=== PATIENT | female | born 1955 | race Caucasian/White ===

== ENCOUNTER 2020-09-25 22:00 | Inpatient (IN) ==
[2020-09-25] MEDS ORDERED: D5% in Water 1,000 ML IVC PRN (23:21)
[2020-09-25] MEDS ORDERED: *HR* Dextrose 50 % in Water (Vial) 50 ML VIAL IVP PRN (23:21)
[2020-09-25] MEDS ORDERED: Dextrose Gel 15 GM/37.5 ML TUBE PO PRN ×2 (23:21)
[2020-09-25] MEDS ORDERED: Cholecalciferol (D-3) 1,000 UNIT (25MCG) TABLET PO SCH (23:45)
[2020-09-26] MEDS: Ibuprofen 800 MG TABLET PO PRN ×2 (00:05→09:29)
[2020-09-26] MEDS: Insulin LISPRO 300 UNITS/3 ML VIAL SUBQ SCH ×5 (00:06→20:53)
[2020-09-26 04:28] LABS: Basophils % 0.4 %; Eosinophils # 0.1 K/mcL (0.0-0.6); Eosinophils % 1.2 %; Hemoglobin 12.4 g/dL (11.5-15.4); Immature Granulocytes % 0.3 % (0-4); Lymphocytes # 2.6 K/mcL (0.6-4.6); Lymphocytes % 33.5 %; Mean Corpuscular HGB Conc 32.6 g/dL (31.6-35.5); Mean Platelet Volume 9.5 fL (9.4-12.4); Monocytes % 12.3 %; Platelet Count 238 K/mcL (140-400); Red Cell Distribution Width 11.9 % (11.5-14.5); Segmented Neutrophils % 52.3 %; White Blood Count 7.7 K/mcL (4.3-11.1)
[2020-09-26 05:20] LABS: BUN/Creatinine Ratio 22 (6-26); Blood Urea Nitrogen 17 mg/dL (8-23); Calcium 9.5 mg/dL (8.6-10.3); Carbon Dioxide 26 mEq/L (23-29); Chloride 104 mEq/L (98-107); Glucose 156 mg/dL (70-105); Osmolality,Calculated 293 (280-300); Potassium 3.7 mEq/L (3.5-5.1); Sodium 139 mEq/L (136-145); eGFR For African Americans > 60 (> 60); eGFR For Non-African Americans > 60 (> 60)
[2020-09-26] MEDS: Aspirin Enteric Coated 81 MG Tablet PO SCH (09:28)
[2020-09-26] MEDS: Fenofibrate 54 MG TABLET PO SCH (09:28)
[2020-09-26] MEDS: lisinopriL 5 MG TABLET PO SCH (09:28)
[2020-09-26] MEDS: *HR* Metformin 500 MG TABLET PO SCH ×2 (09:28→17:46)
[2020-09-26] MEDS: Cholecalciferol (D-3) 1,000 UNIT (25MCG) TABLET PO SCH (09:31)
[2020-09-26] MEDS: Nicotine 14 MG PATCH.TD24 TD SCH (17:47)
[2020-09-27] MEDS: Ibuprofen 800 MG TABLET PO PRN (04:47)
[2020-09-27] MEDS: Fenofibrate 54 MG TABLET PO SCH (09:25)
[2020-09-27] MEDS: *HR* Metformin 500 MG TABLET PO SCH ×2 (09:25→16:39)
[2020-09-27] MEDS: Aspirin Enteric Coated 81 MG Tablet PO SCH (09:25)
[2020-09-27] MEDS: lisinopriL 5 MG TABLET PO SCH (09:25)
[2020-09-27] MEDS: Cholecalciferol (D-3) 1,000 UNIT (25MCG) TABLET PO SCH (09:26)
[2020-09-27] MEDS: Nicotine 14 MG PATCH.TD24 TD SCH (09:26)
[2020-09-27] MEDS: Insulin LISPRO 300 UNITS/3 ML VIAL SUBQ SCH ×4 (09:26→20:36)
[2020-09-28] MEDS: Aspirin Enteric Coated 81 MG Tablet PO SCH (07:50)
[2020-09-28] MEDS: Fenofibrate 54 MG TABLET PO SCH (07:50)
[2020-09-28] MEDS: lisinopriL 5 MG TABLET PO SCH (07:50)
[2020-09-28] MEDS: *HR* Metformin 500 MG TABLET PO SCH ×2 (07:51→17:00)
[2020-09-28] MEDS: Insulin LISPRO 300 UNITS/3 ML VIAL SUBQ SCH ×4 (07:51→21:29)
[2020-09-28] MEDS: Nicotine 14 MG PATCH.TD24 TD SCH (07:53)
[2020-09-28] MEDS: Cholecalciferol (D-3) 1,000 UNIT (25MCG) TABLET PO SCH (08:13)
[2020-09-28] MEDS: Melatonin 3 MG TABLET PO PRN (21:10)
[2020-09-29] MEDS: Fenofibrate 54 MG TABLET PO SCH (09:04)
[2020-09-29] MEDS: Aspirin Enteric Coated 81 MG Tablet PO SCH (09:05)
[2020-09-29] MEDS: Nicotine 14 MG PATCH.TD24 TD SCH (09:05)
[2020-09-29] MEDS: lisinopriL 5 MG TABLET PO SCH (09:05)
[2020-09-29] MEDS: *HR* Metformin 500 MG TABLET PO SCH ×2 (09:05→16:40)
[2020-09-29] MEDS: Cholecalciferol (D-3) 1,000 UNIT (25MCG) TABLET PO SCH (09:05)
[2020-09-29] MEDS: Insulin LISPRO 300 UNITS/3 ML VIAL SUBQ SCH ×4 (09:06→21:51)
[2020-09-29] MEDS: Melatonin 3 MG TABLET PO PRN (21:42)
[2020-09-29] MEDS: Ibuprofen 800 MG TABLET PO PRN (21:42)
[2020-09-30] MEDS: Insulin LISPRO 300 UNITS/3 ML VIAL SUBQ SCH ×4 (07:35→21:44)
[2020-09-30] MEDS: *HR* Metformin 500 MG TABLET PO SCH ×2 (08:26→17:18)
[2020-09-30] MEDS: Aspirin Enteric Coated 81 MG Tablet PO SCH (08:27)
[2020-09-30] MEDS: Nicotine 14 MG PATCH.TD24 TD SCH (08:27)
[2020-09-30] MEDS: Fenofibrate 54 MG TABLET PO SCH (08:27)
[2020-09-30] MEDS: lisinopriL 5 MG TABLET PO SCH (08:27)
[2020-09-30] MEDS: Cholecalciferol (D-3) 1,000 UNIT (25MCG) TABLET PO SCH (08:27)
[2020-09-30] MEDS: *HR* LORazepam 0.5 MG TABLET PO PRN (21:47)
[2020-09-30] MEDS: Melatonin 3 MG TABLET PO PRN (21:47)
[2020-10-01] MEDS: *HR* Metformin 500 MG TABLET PO SCH ×2 (09:07→16:20)
[2020-10-01] MEDS: *HR* LORazepam 0.5 MG TABLET PO PRN ×2 (09:08→21:07)
[2020-10-01] MEDS: Aspirin Enteric Coated 81 MG Tablet PO SCH (09:08)
[2020-10-01] MEDS: lisinopriL 5 MG TABLET PO SCH (09:08)
[2020-10-01] MEDS: Fenofibrate 54 MG TABLET PO SCH (09:08)
[2020-10-01] MEDS: Nicotine 14 MG PATCH.TD24 TD SCH (09:09)
[2020-10-01] MEDS: Insulin LISPRO 300 UNITS/3 ML VIAL SUBQ SCH ×4 (09:09→21:01)
[2020-10-01] MEDS: Cholecalciferol (D-3) 1,000 UNIT (25MCG) TABLET PO SCH (09:09)
[2020-10-01] MEDS: Ibuprofen 800 MG TABLET PO PRN (15:00)
[2020-10-01] MEDS: Melatonin 3 MG TABLET PO PRN (21:07)
[2020-10-02] MEDS: Fenofibrate 54 MG TABLET PO SCH (08:35)
[2020-10-02] MEDS: Aspirin Enteric Coated 81 MG Tablet PO SCH (08:35)
[2020-10-02] MEDS: *HR* Metformin 500 MG TABLET PO SCH ×2 (08:35→16:34)
[2020-10-02] MEDS: *HR* LORazepam 0.5 MG TABLET PO PRN ×2 (08:35→20:12)
[2020-10-02] MEDS: Cholecalciferol (D-3) 1,000 UNIT (25MCG) TABLET PO SCH (08:35)
[2020-10-02] MEDS: lisinopriL 5 MG TABLET PO SCH (08:35)
[2020-10-02] MEDS: Nicotine 14 MG PATCH.TD24 TD SCH (08:36)
[2020-10-02] MEDS: Insulin LISPRO 300 UNITS/3 ML VIAL SUBQ SCH ×4 (08:36→20:18)
[2020-10-02] MEDS: Melatonin 3 MG TABLET PO PRN (20:12)
[2020-10-03] MEDS: Insulin LISPRO 300 UNITS/3 ML VIAL SUBQ SCH ×2 (07:32→14:11)
[2020-10-03] MEDS: *HR* LORazepam 0.5 MG TABLET PO PRN (07:59)
[2020-10-03] MEDS: Cholecalciferol (D-3) 1,000 UNIT (25MCG) TABLET PO SCH (07:59)
[2020-10-03] MEDS: Fenofibrate 54 MG TABLET PO SCH (07:59)
[2020-10-03] MEDS: Aspirin Enteric Coated 81 MG Tablet PO SCH (07:59)
[2020-10-03] MEDS: *HR* Metformin 500 MG TABLET PO SCH (08:00)
[2020-10-03] MEDS: lisinopriL 5 MG TABLET PO SCH (08:00)
[2020-10-03] MEDS: Nicotine 14 MG PATCH.TD24 TD SCH (08:00)
[2020-10-03 13:05] LABS: Bilirubin,Urine Negative (Negative); Blood,Urine Negative (Negative); Clarity,Urine Clear (Clear); Color,Urine Yellow (Yellow); Glucose,Urine (UA) 100 mg/dL (Normal); Ketones,Urine Negative (Negative); Leukocyte Esterase,Urine Trace (Negative); Nitrite,Urine Negative (Negative); Protein,Urine Negative (Neg-Trace); Specific Gravity,Urine 1.025 (1.010-1.025); Urobilinogen,Urine Normal (Normal)
[2020-10-03 13:17] LABS: Amphetamine Screen,Urine Negative ng/mL (Cutoff=1000); Barbiturate Screen,Urine Negative ng/mL (Cutoff=200); Benzodiazepines Screen,Urine Negative ng/mL (Cutoff=200); Cannabinoid Screen,Urine Negative ng/mL (Cutoff = 50); Cocaine Screen,Urine Negative ng/mL (Cutoff= 300); Opiate Screen,Urine Negative ng/mL (Cutoff=300); Phencyclidine Screen,Urine Negative ng/mL (Cutoff=25)
[2020-10-03 13:22] LABS: Bacteria,Urine Few per hpf (None-Few); Mucus,Urine Few per lpf (None-Few); WBC,Urine 0-3 per hpf (0-3)
[2020-10-03 16:42] LABS: Basophils # 0.1 K/mcL (0.0-0.2); Basophils % 0.8 %; Eosinophils # 0.1 K/mcL (0.0-0.6); Eosinophils % 0.9 %; Hematocrit 35.9 % (35.3-44.9); Hemoglobin 12.1 g/dL (11.5-15.4); Immature Granulocytes % 0.3 % (0-4); Lymphocytes # 2.4 K/mcL (0.6-4.6); Lymphocytes % 26.5 %; Mean Corpuscular HGB Conc 33.7 g/dL (31.6-35.5); Mean Corpuscular Hemoglobin 31.4 pg (28.0-33.3); Mean Corpuscular Volume 93.2 fL (83.0-100.0); Mean Platelet Volume 9.7 fL (9.4-12.4); Monocytes % 10.8 %; Neutrophils # 5.5 K/mcL (1.6-8.9); Platelet Count 283 K/mcL (140-400); Red Blood Count 3.85 M/mcL (3.82-4.97); Red Cell Distribution Width 12.1 % (11.5-14.5); Segmented Neutrophils % 60.7 %; White Blood Count 9.1 K/mcL (4.3-11.1)
[2020-10-03 17:00] LABS: Alanine Aminotransferase 15 Units/L (7-52); Albumin/Globulin Ratio 1.7 (1.1-2.2); Alkaline Phosphatase 47 Units/L (34-104); Aspartate Amino Transferase 16 Units/L (13-39); BUN/Creatinine Ratio 27 (6-26); Bilirubin,Total 0.6 mg/dL (0.3-1.0); Blood Urea Nitrogen 17 mg/dL (8-23); Calcium 9.3 mg/dL (8.6-10.3); Carbon Dioxide 26 mEq/L (23-29); Chloride 103 mEq/L (98-107); Globulin 2.3 g/dL (2.4-3.5); Glucose 148 mg/dL (70-105); Osmolality,Calculated 288 (280-300); Sodium 137 mEq/L (136-145); Total Protein 6.3 g/dL (6.4-8.9); eGFR For African Americans > 60 (> 60); eGFR For Non-African Americans > 60 (> 60)
[2020-10-03 17:01] LABS: Troponin I < 0.03 ng/mL (< 0.04)
[2020-10-03 18:55] VITALS: BP 162/73
== END 2020-10-03 19:10 | disposition short-term general hospital (02) | DRG 57 ==
LOC: INPPIK 22:01
PROVIDERS: ADMIT Family Medicine; ATTEND Family Medicine

== ENCOUNTER 2020-10-13 13:44 | Inpatient (IN) ==
[2020-10-14] MEDS ORDERED: Dextrose Gel 15 GM/37.5 ML TUBE PO PRN ×2 (13:46)
[2020-10-14] MEDS ORDERED: D5% in Water 1,000 ML IVC PRN (13:46)
[2020-10-14] MEDS ORDERED: *HR* Dextrose 50 % in Water (Vial) 50 ML VIAL IVP PRN (13:46)
[2020-10-14] MEDS: metroNIDAZOLE 500 MG TABLET GTUBE SCH ×2 (15:05→20:53)
[2020-10-14] MEDS: *HR* Metformin 500 MG TABLET GTUBE SCH (17:30)
[2020-10-14] MEDS: Insulin LISPRO 300 UNITS/3 ML VIAL SUBQ SCH ×2 (17:31→20:53)
[2020-10-15] MEDS: *HR* OxyCODONE Oral Soln 5 MG/5 ML UD.LIQ GTUBE PRN ×2 (00:54→20:41)
[2020-10-15] MEDS: *HR* Enoxaparin 40 MG/0.4 ML SYRINGE SQ SCH (05:41)
[2020-10-15 07:13] LABS: Basophils % 0.5 %; Eosinophils # 0.2 K/mcL (0.0-0.6); Eosinophils % 2.7 %; Hematocrit 33.9 % (35.3-44.9); Hemoglobin 10.5 g/dL (11.5-15.4); Immature Granulocytes % 0.7 % (0-4); Lymphocytes # 1.6 K/mcL (0.6-4.6); Lymphocytes % 19.1 %; Mean Corpuscular Hemoglobin 30.4 pg (28.0-33.3); Mean Corpuscular Volume 98.3 fL (83.0-100.0); Mean Platelet Volume 11.2 fL (9.4-12.4); Monocytes # 1.2 K/mcL (0.0-1.3); Monocytes % 13.8 %; Neutrophils # 5.4 K/mcL (1.6-8.9); Platelet Count 324 K/mcL (140-400); Red Blood Count 3.45 M/mcL (3.82-4.97); Red Cell Distribution Width 12.5 % (11.5-14.5); Segmented Neutrophils % 63.2 %; White Blood Count 8.5 K/mcL (4.3-11.1)
[2020-10-15 07:34] LABS: BUN/Creatinine Ratio 63 (6-26); Blood Urea Nitrogen 33 mg/dL (8-23); Calcium 8.9 mg/dL (8.6-10.3); Carbon Dioxide 28 mEq/L (23-29); Chloride 102 mEq/L (98-107); Glucose 309 mg/dL (70-105); Osmolality,Calculated 305 (280-300); Potassium 4.4 mEq/L (3.5-5.1); Sodium 138 mEq/L (136-145); eGFR For African Americans > 60 (> 60); eGFR For Non-African Americans > 60 (> 60)
[2020-10-15] MEDS: Aspirin 325 MG TABLET GTUBE SCH (08:00)
[2020-10-15] MEDS: *HR* Metformin 500 MG TABLET GTUBE SCH ×2 (08:00→17:58)
[2020-10-15] MEDS: lisinopriL 10 MG TABLET GTUBE SCH (08:00)
[2020-10-15] MEDS: metroNIDAZOLE 500 MG TABLET GTUBE SCH ×3 (08:00→19:58)
[2020-10-15] MEDS: cefTRIAXone 1,000 MG in Water for inj. (sterile) 10 ML IVP SCH (08:01)
[2020-10-15] MEDS: Insulin LISPRO 300 UNITS/3 ML VIAL SUBQ SCH ×4 (08:02→19:58)
[2020-10-16] MEDS: *HR* OxyCODONE Oral Soln 5 MG/5 ML UD.LIQ GTUBE PRN ×2 (03:57→20:45)
[2020-10-16] MEDS: *HR* Enoxaparin 40 MG/0.4 ML SYRINGE SQ SCH (06:03)
[2020-10-16] MEDS: Insulin LISPRO 300 UNITS/3 ML VIAL SUBQ SCH ×4 (08:58→20:45)
[2020-10-16] MEDS: cefTRIAXone 1,000 MG in Water for inj. (sterile) 10 ML IVP SCH (08:59)
[2020-10-16] MEDS: metroNIDAZOLE 500 MG TABLET GTUBE SCH ×3 (09:00→20:45)
[2020-10-16] MEDS: Aspirin 325 MG TABLET GTUBE SCH (09:00)
[2020-10-16] MEDS: *HR* Metformin 500 MG TABLET GTUBE SCH ×2 (09:00→17:12)
[2020-10-16] MEDS: lisinopriL 10 MG TABLET GTUBE SCH (09:11)
[2020-10-17] MEDS: Saliva Stimulant 44.3ml BOTTLE PO PRN (00:38)
[2020-10-17] MEDS: *HR* Enoxaparin 40 MG/0.4 ML SYRINGE SQ SCH (06:28)
[2020-10-17] MEDS: *HR* Metformin 500 MG TABLET GTUBE SCH ×2 (08:01→16:31)
[2020-10-17] MEDS: Aspirin 325 MG TABLET GTUBE SCH (08:01)
[2020-10-17] MEDS: metroNIDAZOLE 500 MG TABLET GTUBE SCH ×3 (08:01→20:15)
[2020-10-17] MEDS: lisinopriL 10 MG TABLET GTUBE SCH (08:02)
[2020-10-17] MEDS: cefTRIAXone 1,000 MG in Water for inj. (sterile) 10 ML IVP SCH (08:02)
[2020-10-17] MEDS: *HR* OxyCODONE Oral Soln 5 MG/5 ML UD.LIQ GTUBE PRN ×3 (08:04→22:35)
[2020-10-17] MEDS: Insulin LISPRO 300 UNITS/3 ML VIAL SUBQ SCH ×4 (08:04→21:12)
[2020-10-18] MEDS: *HR* Enoxaparin 40 MG/0.4 ML SYRINGE SQ SCH (05:49)
[2020-10-18] MEDS: Insulin LISPRO 300 UNITS/3 ML VIAL SUBQ SCH ×4 (09:05→21:00)
[2020-10-18] MEDS: *HR* OxyCODONE Oral Soln 5 MG/5 ML UD.LIQ GTUBE PRN ×3 (09:06→23:18)
[2020-10-18] MEDS: *HR* Metformin 500 MG TABLET GTUBE SCH ×2 (09:06→16:53)
[2020-10-18] MEDS: Saliva Stimulant 44.3ml BOTTLE PO PRN (09:06)
[2020-10-18] MEDS: lisinopriL 10 MG TABLET GTUBE SCH (09:06)
[2020-10-18] MEDS: Aspirin 325 MG TABLET GTUBE SCH (09:06)
[2020-10-18] MEDS: hydrOXYzine pamoate 25 MG CAPSULE PO PRN ×2 (15:04→21:14)
[2020-10-19] MEDS: *HR* Enoxaparin 40 MG/0.4 ML SYRINGE SQ SCH (05:29)
[2020-10-19] MEDS: Insulin LISPRO 300 UNITS/3 ML VIAL SUBQ SCH ×4 (08:00→22:07)
[2020-10-19] MEDS: Aspirin 81 MG TAB.CHEW GTUBE SCH (08:01)
[2020-10-19] MEDS: *HR* Metformin 500 MG TABLET GTUBE SCH ×2 (08:01→16:51)
[2020-10-19] MEDS: hydrOXYzine pamoate 25 MG CAPSULE PO PRN ×3 (08:01→23:03)
[2020-10-19] MEDS: Saliva Stimulant 44.3ml BOTTLE PO PRN ×2 (08:02→12:22)
[2020-10-19] MEDS: lisinopriL 10 MG TABLET GTUBE SCH (08:29)
[2020-10-19] MEDS: Insulin DETEMIR 100 UNIT/ML X5UNITS SUBQ SCH ×2 (10:32→22:29)
[2020-10-19] MEDS: *HR* OxyCODONE Oral Soln 5 MG/5 ML UD.LIQ GTUBE PRN ×3 (10:51→23:03)
[2020-10-19] MEDS ORDERED: Morphine Sulfate 2 MG/ML SYRINGE IVP ONE (14:10)
[2020-10-20] MEDS: *HR* Enoxaparin 40 MG/0.4 ML SYRINGE SQ SCH (05:41)
[2020-10-20] MEDS: lisinopriL 10 MG TABLET GTUBE SCH (08:08)
[2020-10-20] MEDS: hydrOXYzine pamoate 25 MG CAPSULE PO PRN (08:08)
[2020-10-20] MEDS: Aspirin 81 MG TAB.CHEW GTUBE SCH (08:08)
[2020-10-20] MEDS: Insulin DETEMIR 100 UNIT/ML X5UNITS SUBQ SCH ×2 (08:08→22:00)
[2020-10-20] MEDS: *HR* OxyCODONE Oral Soln 5 MG/5 ML UD.LIQ GTUBE PRN ×3 (08:08→23:32)
[2020-10-20] MEDS: *HR* Metformin 500 MG TABLET GTUBE SCH ×2 (08:08→17:37)
[2020-10-20] MEDS: Insulin LISPRO 300 UNITS/3 ML VIAL SUBQ SCH ×4 (08:09→21:38)
[2020-10-20] MEDS: HydrOXYzine SYP 10 MG/5 ML UDC GTUBE PRN (22:07)
[2020-10-21] MEDS: *HR* Enoxaparin 40 MG/0.4 ML SYRINGE SQ SCH (05:55)
[2020-10-21 06:46] LABS: Hematocrit 31.5 % (35.3-44.9); Mean Corpuscular HGB Conc 31.7 g/dL (31.6-35.5); Mean Corpuscular Hemoglobin 31.1 pg (28.0-33.3); Mean Corpuscular Volume 97.8 fL (83.0-100.0); Mean Platelet Volume 11.4 fL (9.4-12.4); Platelet Count 269 K/mcL (140-400); Red Blood Count 3.22 M/mcL (3.82-4.97); Red Cell Distribution Width 12.8 % (11.5-14.5); White Blood Count 7.8 K/mcL (4.3-11.1)
[2020-10-21 07:21] LABS: Alanine Aminotransferase 12 Units/L (7-52); Albumin 3.1 g/dL (3.5-5.7); Albumin/Globulin Ratio 1.3 (1.1-2.2); Alkaline Phosphatase 61 Units/L (34-104); Aspartate Amino Transferase 16 Units/L (13-39); BUN/Creatinine Ratio 59 (6-26); Bilirubin,Total 0.2 mg/dL (0.3-1.0); Blood Urea Nitrogen 29 mg/dL (8-23); Calcium 8.8 mg/dL (8.6-10.3); Carbon Dioxide 24 mEq/L (23-29); Chloride 102 mEq/L (98-107); Globulin 2.3 g/dL (2.4-3.5); Glucose 241 mg/dL (70-105); Magnesium 1.7 mg/dL (1.6-2.6); Osmolality,Calculated 292 (280-300); Potassium 4.9 mEq/L (3.5-5.1); Sodium 134 mEq/L (136-145); Total Protein 5.4 g/dL (6.4-8.9); eGFR For African Americans > 60 (> 60); eGFR For Non-African Americans > 60 (> 60)
[2020-10-21] MEDS: *HR* Metformin 500 MG TABLET GTUBE SCH ×2 (07:42→16:40)
[2020-10-21] MEDS: Insulin LISPRO 300 UNITS/3 ML VIAL SUBQ SCH ×4 (07:43→21:03)
[2020-10-21] MEDS: *HR* OxyCODONE Oral Soln 5 MG/5 ML UD.LIQ GTUBE PRN ×2 (07:44→16:44)
[2020-10-21] MEDS: Insulin DETEMIR 100 UNIT/ML X5UNITS SUBQ SCH ×2 (08:57→21:03)
[2020-10-21] MEDS: Aspirin 81 MG TAB.CHEW GTUBE SCH (09:01)
[2020-10-21] MEDS: lisinopriL 10 MG TABLET GTUBE SCH (09:01)
[2020-10-21] MEDS: HydrOXYzine SYP 10 MG/5 ML UDC GTUBE PRN (12:46)
[2020-10-22] MEDS: *HR* OxyCODONE Oral Soln 5 MG/5 ML UD.LIQ GTUBE PRN ×4 (01:15→23:18)
[2020-10-22] MEDS: HydrOXYzine SYP 10 MG/5 ML UDC GTUBE PRN ×2 (01:16→16:57)
[2020-10-22] MEDS: *HR* Enoxaparin 40 MG/0.4 ML SYRINGE SQ SCH (05:07)
[2020-10-22] MEDS: Aspirin 81 MG TAB.CHEW GTUBE SCH (08:08)
[2020-10-22] MEDS: lisinopriL 10 MG TABLET GTUBE SCH (08:08)
[2020-10-22] MEDS: *HR* Metformin 500 MG TABLET GTUBE SCH ×2 (08:08→16:59)
[2020-10-22] MEDS: Insulin DETEMIR 100 UNIT/ML X5UNITS SUBQ SCH ×2 (08:19→21:43)
[2020-10-22] MEDS: Insulin LISPRO 300 UNITS/3 ML VIAL SUBQ SCH ×4 (08:20→21:42)
[2020-10-23] MEDS: *HR* OxyCODONE Oral Soln 5 MG/5 ML UD.LIQ GTUBE PRN ×3 (06:25→21:42)
[2020-10-23] MEDS: *HR* Enoxaparin 40 MG/0.4 ML SYRINGE SQ SCH (06:25)
[2020-10-23] MEDS: Insulin LISPRO 300 UNITS/3 ML VIAL SUBQ SCH ×4 (09:29→22:42)
[2020-10-23] MEDS: Insulin DETEMIR 100 UNIT/ML X5UNITS SUBQ SCH ×2 (09:44→22:27)
[2020-10-23] MEDS: *HR* Metformin 500 MG TABLET GTUBE SCH ×2 (09:44→15:54)
[2020-10-23] MEDS: Aspirin 81 MG TAB.CHEW GTUBE SCH (09:44)
[2020-10-23] MEDS: lisinopriL 10 MG TABLET GTUBE SCH (09:44)
[2020-10-23] MEDS: Simethicone 80 MG TAB.CHEW PO PRN (15:54)
[2020-10-23] MEDS ORDERED: *HR* OxyCODONE Oral Soln 5 MG/5 ML UD.LIQ GTUBE ONE (18:19)
[2020-10-23] MEDS: HydrOXYzine SYP 10 MG/5 ML UDC GTUBE PRN (21:40)
[2020-10-24] MEDS: HydrOXYzine SYP 10 MG/5 ML UDC GTUBE PRN (03:45)
[2020-10-24] MEDS: *HR* OxyCODONE Oral Soln 5 MG/5 ML UD.LIQ GTUBE PRN ×2 (03:45→16:03)
[2020-10-24] MEDS: *HR* Enoxaparin 40 MG/0.4 ML SYRINGE SQ SCH (06:23)
[2020-10-24] MEDS: Insulin LISPRO 300 UNITS/3 ML VIAL SUBQ SCH ×4 (10:37→20:41)
[2020-10-24] MEDS: *HR* Metformin 500 MG TABLET GTUBE SCH ×2 (10:43→16:03)
[2020-10-24] MEDS: lisinopriL 10 MG TABLET GTUBE SCH (10:43)
[2020-10-24] MEDS: Aspirin 81 MG TAB.CHEW GTUBE SCH (10:43)
[2020-10-24] MEDS: Insulin DETEMIR 100 UNIT/ML X5UNITS SUBQ SCH ×2 (10:44→20:56)
[2020-10-24] MEDS: *HR* LORazepam 0.5 MG TABLET PO PRN (16:03)
[2020-10-24] MEDS: Simethicone 80 MG TAB.CHEW PO PRN (16:03)
[2020-10-25] MEDS: *HR* Enoxaparin 40 MG/0.4 ML SYRINGE SQ SCH (06:31)
[2020-10-25] MEDS: Aspirin 81 MG TAB.CHEW GTUBE SCH (07:51)
[2020-10-25] MEDS: *HR* Metformin 500 MG TABLET GTUBE SCH ×2 (07:51→16:04)
[2020-10-25] MEDS: lisinopriL 10 MG TABLET GTUBE SCH (07:51)
[2020-10-25] MEDS: *HR* OxyCODONE Oral Soln 5 MG/5 ML UD.LIQ GTUBE PRN ×4 (07:53→20:37)
[2020-10-25] MEDS: *HR* LORazepam 0.5 MG TABLET PO PRN ×3 (07:53→16:04)
[2020-10-25] MEDS: Insulin DETEMIR 100 UNIT/ML X5UNITS SUBQ SCH ×2 (08:28→20:33)
[2020-10-25] MEDS: Insulin LISPRO 300 UNITS/3 ML VIAL SUBQ SCH ×4 (08:28→20:32)
[2020-10-26] MEDS: *HR* OxyCODONE Oral Soln 5 MG/5 ML UD.LIQ GTUBE PRN ×4 (04:21→21:57)
[2020-10-26] MEDS: *HR* LORazepam 0.5 MG TABLET PO PRN ×2 (04:53→15:34)
[2020-10-26] MEDS: *HR* Enoxaparin 40 MG/0.4 ML SYRINGE SQ SCH (06:02)
[2020-10-26] MEDS: Aspirin 81 MG TAB.CHEW GTUBE SCH (07:43)
[2020-10-26] MEDS: *HR* Metformin 500 MG TABLET GTUBE SCH ×2 (07:43→15:34)
[2020-10-26] MEDS: lisinopriL 10 MG TABLET GTUBE SCH (07:43)
[2020-10-26 07:52] LABS: Basophils % 0.6 %; Eosinophils # 0.2 K/mcL (0.0-0.6); Eosinophils % 2.7 %; Hemoglobin 9.3 g/dL (11.5-15.4); Immature Granulocytes % 0.4 % (0-4); Lymphocytes # 1.9 K/mcL (0.6-4.6); Lymphocytes % 25.8 %; Mean Corpuscular HGB Conc 32.1 g/dL (31.6-35.5); Mean Corpuscular Volume 96.7 fL (83.0-100.0); Mean Platelet Volume 10.9 fL (9.4-12.4); Monocytes # 0.8 K/mcL (0.0-1.3); Monocytes % 11.3 %; Neutrophils # 4.2 K/mcL (1.6-8.9); Platelet Count 331 K/mcL (140-400); Red Cell Distribution Width 12.7 % (11.5-14.5); Segmented Neutrophils % 59.2 %; White Blood Count 7.2 K/mcL (4.3-11.1)
[2020-10-26 08:11] LABS: BUN/Creatinine Ratio 66 (6-26); Blood Urea Nitrogen 29 mg/dL (8-23); Calcium 8.8 mg/dL (8.6-10.3); Carbon Dioxide 27 mEq/L (23-29); Chloride 100 mEq/L (98-107); Glucose 252 mg/dL (70-105); Osmolality,Calculated 292 (280-300); Potassium 4.5 mEq/L (3.5-5.1); Sodium 134 mEq/L (136-145); eGFR For African Americans > 60 (> 60); eGFR For Non-African Americans > 60 (> 60)
[2020-10-26] MEDS: Insulin DETEMIR 100 UNIT/ML X5UNITS SUBQ SCH ×2 (08:39→20:51)
[2020-10-26] MEDS: Insulin LISPRO 300 UNITS/3 ML VIAL SUBQ SCH ×4 (08:39→20:51)
[2020-10-26] MEDS ORDERED: Bisacodyl 10 MG RECTAL SUPPOSITORY RC PRN (08:43)
[2020-10-27] MEDS: *HR* LORazepam 0.5 MG TABLET PO PRN ×2 (00:47→09:04)
[2020-10-27] MEDS: *HR* OxyCODONE Oral Soln 5 MG/5 ML UD.LIQ GTUBE PRN ×4 (01:58→22:04)
[2020-10-27] MEDS: *HR* Enoxaparin 40 MG/0.4 ML SYRINGE SQ SCH (06:04)
[2020-10-27] MEDS: *HR* Metformin 500 MG TABLET GTUBE SCH ×2 (09:04→16:39)
[2020-10-27] MEDS: Aspirin 81 MG TAB.CHEW GTUBE SCH (09:04)
[2020-10-27] MEDS: lisinopriL 10 MG TABLET GTUBE SCH (09:04)
[2020-10-27] MEDS: Insulin DETEMIR 100 UNIT/ML X5UNITS SUBQ SCH ×2 (09:06→22:04)
[2020-10-27] MEDS: Insulin LISPRO 300 UNITS/3 ML VIAL SUBQ SCH ×4 (09:06→21:02)
[2020-10-27] MEDS: *HR* LORazepam 1 MG TABLET PO PRN (22:04)
[2020-10-27] MEDS: Melatonin 3 MG TABLET PO PRN (22:04)
[2020-10-28] MEDS: *HR* Enoxaparin 40 MG/0.4 ML SYRINGE SQ SCH (05:28)
[2020-10-28] MEDS: lisinopriL 10 MG TABLET GTUBE SCH (08:58)
[2020-10-28] MEDS: *HR* Metformin 500 MG TABLET GTUBE SCH ×2 (08:58→16:33)
[2020-10-28] MEDS: Aspirin 81 MG TAB.CHEW GTUBE SCH (08:58)
[2020-10-28] MEDS: Insulin DETEMIR 100 UNIT/ML X5UNITS SUBQ SCH ×2 (08:59→20:52)
[2020-10-28] MEDS: Insulin LISPRO 300 UNITS/3 ML VIAL SUBQ SCH ×4 (08:59→22:01)
[2020-10-28] MEDS: *HR* LORazepam 1 MG TABLET PO PRN (13:36)
[2020-10-28] MEDS: Gabapentin 100 MG CAPSULE PO SCH ×2 (16:32→20:52)
[2020-10-29] MEDS: Melatonin 3 MG TABLET PO PRN ×2 (00:07→23:26)
[2020-10-29] MEDS: *HR* LORazepam 1 MG TABLET PO PRN ×3 (00:07→23:26)
[2020-10-29] MEDS: *HR* Enoxaparin 40 MG/0.4 ML SYRINGE SQ SCH (05:51)
[2020-10-29] MEDS: Aspirin 81 MG TAB.CHEW GTUBE SCH (08:19)
[2020-10-29] MEDS: *HR* Metformin 500 MG TABLET GTUBE SCH ×2 (08:19→16:40)
[2020-10-29] MEDS: Gabapentin 100 MG CAPSULE PO SCH ×3 (08:20→21:16)
[2020-10-29] MEDS: lisinopriL 10 MG TABLET GTUBE SCH (08:20)
[2020-10-29] MEDS: Insulin DETEMIR 100 UNIT/ML X5UNITS SUBQ SCH ×2 (08:23→22:03)
[2020-10-29] MEDS: Insulin LISPRO 300 UNITS/3 ML VIAL SUBQ SCH ×4 (08:24→22:05)
[2020-10-29] MEDS ORDERED: E-Z-PAQUE (BARIUM SULF) SUSP 1 BOTTLE PO ONE (10:45)
[2020-10-29] MEDS ORDERED: E-Z-HD (BARIUM SULF) SUSPENSION PO ONE (10:45)
[2020-10-30] MEDS: *HR* Enoxaparin 40 MG/0.4 ML SYRINGE SQ SCH (06:03)
[2020-10-30] MEDS: Aspirin 81 MG TAB.CHEW GTUBE SCH (08:42)
[2020-10-30] MEDS: Gabapentin 100 MG CAPSULE PO SCH ×3 (08:42→20:58)
[2020-10-30] MEDS: Insulin LISPRO 300 UNITS/3 ML VIAL SUBQ SCH ×4 (08:42→21:24)
[2020-10-30] MEDS: *HR* Metformin 500 MG TABLET GTUBE SCH ×2 (08:42→16:31)
[2020-10-30] MEDS: *HR* LORazepam 1 MG TABLET PO PRN ×2 (08:42→16:47)
[2020-10-30] MEDS: Insulin DETEMIR 100 UNIT/ML X5UNITS SUBQ SCH ×2 (08:43→21:44)
[2020-10-30] MEDS: lisinopriL 10 MG TABLET GTUBE SCH (08:43)
[2020-10-30] MEDS: Ondansetron ODT 4 MG TAB.RAPDIS SL PRN (16:31)
[2020-10-30] MEDS: Melatonin 3 MG TABLET PO PRN (20:58)
[2020-10-31] MEDS: Simethicone 80 MG TAB.CHEW PO PRN (03:35)
[2020-10-31] MEDS: Ondansetron ODT 4 MG TAB.RAPDIS SL PRN (03:35)
[2020-10-31] MEDS: *HR* Enoxaparin 40 MG/0.4 ML SYRINGE SQ SCH (06:14)
[2020-10-31] MEDS: Aspirin 81 MG TAB.CHEW GTUBE SCH (08:12)
[2020-10-31] MEDS: *HR* LORazepam 1 MG TABLET PO PRN ×2 (08:12→16:19)
[2020-10-31] MEDS: lisinopriL 10 MG TABLET GTUBE SCH (08:12)
[2020-10-31] MEDS: Gabapentin 100 MG CAPSULE PO SCH ×3 (08:12→20:59)
[2020-10-31] MEDS: *HR* Metformin 500 MG TABLET GTUBE SCH ×2 (08:12→15:15)
[2020-10-31] MEDS: Insulin LISPRO 300 UNITS/3 ML VIAL SUBQ SCH ×4 (08:14→21:19)
[2020-10-31] MEDS: Insulin DETEMIR 100 UNIT/ML X5UNITS SUBQ SCH ×2 (08:14→21:00)
[2020-10-31] MEDS ORDERED: Haloperidol Lactate 5 MG/ML VIAL IM ONE (21:37)
[2020-10-31] MEDS: Melatonin 3 MG TABLET PO PRN (21:53)
[2020-10-31] MEDS ORDERED: *HR* LORazepam 1 MG TABLET GTUBE PRN (23:45)
[2020-11-01] MEDS: *HR* Enoxaparin 40 MG/0.4 ML SYRINGE SQ SCH (06:04)
[2020-11-01 08:14] LABS: Basophils % 0.4 %; Eosinophils # 0.3 K/mcL (0.0-0.6); Eosinophils % 3.3 %; Hematocrit 26.7 % (35.3-44.9); Hemoglobin 8.7 g/dL (11.5-15.4); Lymphocytes # 1.5 K/mcL (0.6-4.6); Lymphocytes % 19.3 %; Mean Corpuscular HGB Conc 32.6 g/dL (31.6-35.5); Mean Corpuscular Hemoglobin 30.7 pg (28.0-33.3); Mean Corpuscular Volume 94.3 fL (83.0-100.0); Mean Platelet Volume 11.2 fL (9.4-12.4); Monocytes # 0.9 K/mcL (0.0-1.3); Monocytes % 10.8 %; Neutrophils # 5.2 K/mcL (1.6-8.9); Platelet Count 261 K/mcL (140-400); Red Blood Count 2.83 M/mcL (3.82-4.97); Red Cell Distribution Width 13.1 % (11.5-14.5); Segmented Neutrophils % 65.2 %
[2020-11-01] MEDS: Gabapentin 300 MG CAPSULE GTUBE SCH ×3 (08:24→21:44)
[2020-11-01] MEDS: Aspirin 81 MG TAB.CHEW GTUBE SCH (08:24)
[2020-11-01] MEDS: *HR* Metformin 500 MG TABLET GTUBE SCH ×2 (08:24→16:48)
[2020-11-01] MEDS: *HR* LORazepam 1 MG TABLET GTUBE PRN ×2 (08:24→16:48)
[2020-11-01] MEDS: lisinopriL 10 MG TABLET GTUBE SCH (08:24)
[2020-11-01] MEDS: Insulin DETEMIR 100 UNIT/ML X5UNITS SUBQ SCH ×2 (08:25→21:41)
[2020-11-01] MEDS: Insulin LISPRO 300 UNITS/3 ML VIAL SUBQ SCH ×4 (08:26→21:42)
[2020-11-01 08:30] LABS: BUN/Creatinine Ratio 62 (6-26); Blood Urea Nitrogen 23 mg/dL (8-23); Calcium 9.2 mg/dL (8.6-10.3); Carbon Dioxide 24 mEq/L (23-29); Chloride 102 mEq/L (98-107); Glucose 156 mg/dL (70-105); Osmolality,Calculated 289 (280-300); Potassium 4.7 mEq/L (3.5-5.1); Sodium 136 mEq/L (136-145); Troponin I < 0.03 ng/mL (< 0.04); eGFR For African Americans > 60 (> 60); eGFR For Non-African Americans > 60 (> 60)
[2020-11-01] MEDS: Melatonin 3 MG TABLET PO PRN (21:46)
[2020-11-02] MEDS: *HR* LORazepam 1 MG TABLET GTUBE PRN ×3 (04:37→21:21)
[2020-11-02] MEDS: *HR* Enoxaparin 40 MG/0.4 ML SYRINGE SQ SCH (05:01)
[2020-11-02] MEDS: Insulin DETEMIR 100 UNIT/ML X5UNITS SUBQ SCH ×2 (08:04→20:55)
[2020-11-02] MEDS: Insulin LISPRO 300 UNITS/3 ML VIAL SUBQ SCH ×4 (08:06→20:55)
[2020-11-02] MEDS: *HR* Metformin 500 MG TABLET GTUBE SCH ×2 (09:20→17:31)
[2020-11-02] MEDS: Aspirin 81 MG TAB.CHEW GTUBE SCH (09:20)
[2020-11-02] MEDS: lisinopriL 10 MG TABLET GTUBE SCH (09:21)
[2020-11-02] MEDS: Gabapentin 300 MG CAPSULE GTUBE SCH ×3 (09:21→20:56)
[2020-11-03] MEDS: *HR* Enoxaparin 40 MG/0.4 ML SYRINGE SQ SCH (06:14)
[2020-11-03] MEDS: lisinopriL 10 MG TABLET GTUBE SCH (08:33)
[2020-11-03] MEDS: Aspirin 81 MG TAB.CHEW GTUBE SCH (09:02)
[2020-11-03] MEDS: Gabapentin 300 MG CAPSULE GTUBE SCH ×4 (09:03→23:02)
[2020-11-03] MEDS: *HR* Metformin 500 MG TABLET GTUBE SCH ×2 (09:03→16:45)
[2020-11-03] MEDS: Insulin DETEMIR 100 UNIT/ML X5UNITS SUBQ SCH ×2 (09:04→21:01)
[2020-11-03] MEDS: Insulin LISPRO 300 UNITS/3 ML VIAL SUBQ SCH ×4 (09:04→20:48)
[2020-11-03] MEDS: Ondansetron ODT 4 MG TAB.RAPDIS SL PRN ×2 (11:30→23:02)
[2020-11-03 16:08] LABS: Bilirubin,Urine Negative (Negative); Blood,Urine Negative (Negative); Clarity,Urine Clear (Clear); Color,Urine Yellow (Yellow); Glucose,Urine (UA) Normal (Normal); Ketones,Urine Negative (Negative); Leukocyte Esterase,Urine Small (Negative); Nitrite,Urine Negative (Negative); Protein,Urine Negative (Neg-Trace); Urobilinogen,Urine Normal (Normal)
[2020-11-03 16:15] LABS: Bacteria,Urine Few per hpf (None-Few); Mucus,Urine Few per lpf (None-Few); RBC,Urine 0-3 per hpf (0-3); Renal Epithelial Cells,Urine Few per hpf (None-Few); Squamous Epithelial Cell,Urine Few per hpf (None-Few)
[2020-11-03] MEDS: *HR* LORazepam 1 MG TABLET GTUBE PRN (23:02)
[2020-11-03] MEDS: Melatonin 3 MG TABLET PO PRN (23:03)
[2020-11-04] MEDS: *HR* Enoxaparin 40 MG/0.4 ML SYRINGE SQ SCH (06:05)
[2020-11-04] MEDS: *HR* LORazepam 1 MG TABLET GTUBE PRN (06:05)
[2020-11-04] MEDS: *HR* Metformin 500 MG TABLET GTUBE SCH ×2 (08:16→16:23)
[2020-11-04] MEDS: Aspirin 81 MG TAB.CHEW GTUBE SCH (08:16)
[2020-11-04] MEDS: Gabapentin 300 MG CAPSULE GTUBE SCH ×3 (08:16→20:03)
[2020-11-04] MEDS: Insulin LISPRO 300 UNITS/3 ML VIAL SUBQ SCH ×4 (08:21→18:49)
[2020-11-04] MEDS: Insulin DETEMIR 100 UNIT/ML X5UNITS SUBQ SCH ×2 (08:22→20:08)
[2020-11-04] MEDS ORDERED: Furosemide 40 MG/4 ML VIAL IVP ONE (14:13)
[2020-11-04] MEDS ORDERED: Ipratropium/Albuterol Neb 3 ML IH PRN (14:36)
[2020-11-04 15:16] LABS: Basophils # 0.1 K/mcL (0.0-0.2); Basophils % 0.3 %; Eosinophils # 0.2 K/mcL (0.0-0.6); Eosinophils % 1.1 %; Hematocrit 28.3 % (35.3-44.9); Hemoglobin 9.3 g/dL (11.5-15.4); Immature Granulocytes % 0.6 % (0-4); Lymphocytes # 1.6 K/mcL (0.6-4.6); Lymphocytes % 10.2 %; Mean Corpuscular HGB Conc 32.9 g/dL (31.6-35.5); Mean Corpuscular Hemoglobin 31.2 pg (28.0-33.3); Mean Platelet Volume 10.6 fL (9.4-12.4); Monocytes # 1.1 K/mcL (0.0-1.3); Monocytes % 6.8 %; Neutrophils # 12.7 K/mcL (1.6-8.9); Platelet Count 273 K/mcL (140-400); Red Blood Count 2.98 M/mcL (3.82-4.97); Red Cell Distribution Width 13.6 % (11.5-14.5); White Blood Count 15.7 K/mcL (4.3-11.1)
[2020-11-04 15:29] LABS: BUN/Creatinine Ratio 43 (6-26); Blood Urea Nitrogen 23 mg/dL (8-23); Calcium 8.9 mg/dL (8.6-10.3); Carbon Dioxide 25 mEq/L (23-29); Chloride 96 mEq/L (98-107); Glucose 124 mg/dL (70-105); Osmolality,Calculated 277 (280-300); Potassium 4.5 mEq/L (3.5-5.1); Sodium 131 mEq/L (136-145); eGFR For African Americans > 60 (> 60); eGFR For Non-African Americans > 60 (> 60)
[2020-11-04] MEDS: cefTRIAXone 2,000 MG in 0.9 % Sodium Chloride Mini Bag 100 ML IVPB SCH (18:52)
[2020-11-04] MEDS: MetroNIDAZOLE 500 MG/100 ML 500 MG/100 ML BAG IVPB SCH ×2 (20:14→23:55)
[2020-11-05] MEDS: *HR* Enoxaparin 40 MG/0.4 ML SYRINGE SQ SCH (06:19)
[2020-11-05] MEDS: Insulin LISPRO 300 UNITS/3 ML VIAL SUBQ SCH ×4 (08:38→19:39)
[2020-11-05] MEDS: Insulin DETEMIR 100 UNIT/ML X5UNITS SUBQ SCH ×2 (08:38→21:42)
[2020-11-05] MEDS: MetroNIDAZOLE 500 MG/100 ML 500 MG/100 ML BAG IVPB SCH ×3 (08:57→23:27)
[2020-11-05] MEDS: Gabapentin 300 MG CAPSULE GTUBE SCH ×3 (10:15→21:43)
[2020-11-05] MEDS: *HR* Metformin 500 MG TABLET GTUBE SCH ×2 (10:15→15:53)
[2020-11-05] MEDS: Aspirin 81 MG TAB.CHEW GTUBE SCH (10:15)
[2020-11-05] MEDS: cefTRIAXone 2,000 MG in 0.9 % Sodium Chloride Mini Bag 100 ML IVPB SCH (16:47)
[2020-11-06] MEDS: *HR* Enoxaparin 40 MG/0.4 ML SYRINGE SQ SCH (06:19)
[2020-11-06] MEDS: *HR* Metformin 500 MG TABLET GTUBE SCH ×2 (08:11→16:06)
[2020-11-06] MEDS: *HR* LORazepam 1 MG TABLET GTUBE PRN ×2 (08:12→16:07)
[2020-11-06] MEDS: Aspirin 81 MG TAB.CHEW GTUBE SCH (08:12)
[2020-11-06] MEDS: Gabapentin 300 MG CAPSULE GTUBE SCH ×3 (08:13→23:59)
[2020-11-06] MEDS: MetroNIDAZOLE 500 MG/100 ML 500 MG/100 ML BAG IVPB SCH ×3 (08:14→23:59)
[2020-11-06 08:27] LABS: Basophils % 0.4 %; Eosinophils # 0.4 K/mcL (0.0-0.6); Eosinophils % 5.7 %; Hematocrit 24.7 % (35.3-44.9); Hemoglobin 7.9 g/dL (11.5-15.4); Immature Granulocytes % 0.5 % (0-4); Lymphocytes # 0.9 K/mcL (0.6-4.6); Lymphocytes % 12.3 %; Mean Corpuscular Hemoglobin 30.5 pg (28.0-33.3); Mean Corpuscular Volume 95.4 fL (83.0-100.0); Mean Platelet Volume 10.8 fL (9.4-12.4); Monocytes # 0.7 K/mcL (0.0-1.3); Monocytes % 9.1 %; Neutrophils # 5.3 K/mcL (1.6-8.9); Platelet Count 242 K/mcL (140-400); Red Blood Count 2.59 M/mcL (3.82-4.97); Red Cell Distribution Width 13.4 % (11.5-14.5); White Blood Count 7.3 K/mcL (4.3-11.1)
[2020-11-06] MEDS: Insulin DETEMIR 100 UNIT/ML X5UNITS SUBQ SCH (08:31)
[2020-11-06] MEDS: Insulin LISPRO 300 UNITS/3 ML VIAL SUBQ SCH ×3 (08:31→17:02)
[2020-11-06 08:37] LABS: BUN/Creatinine Ratio 44 (6-26); Blood Urea Nitrogen 19 mg/dL (8-23); Calcium 8.4 mg/dL (8.6-10.3); Carbon Dioxide 26 mEq/L (23-29); Chloride 99 mEq/L (98-107); Glucose 291 mg/dL (70-105); Osmolality,Calculated 291 (280-300); Potassium 3.9 mEq/L (3.5-5.1); Sodium 134 mEq/L (136-145); eGFR For African Americans > 60 (> 60); eGFR For Non-African Americans > 60 (> 60)
[2020-11-06] MEDS: Ondansetron ODT 4 MG TAB.RAPDIS SL PRN (16:07)
[2020-11-06] MEDS: cefTRIAXone 2,000 MG in 0.9 % Sodium Chloride Mini Bag 100 ML IVPB SCH (16:32)
[2020-11-06] MEDS ORDERED: *HR* LORazepam 2 MG/ML VIAL IVP ONE (19:06)
[2020-11-07] MEDS: Insulin LISPRO 300 UNITS/3 ML VIAL SUBQ SCH ×5 (03:03→22:35)
[2020-11-07] MEDS: Aspirin 81 MG TAB.CHEW GTUBE SCH (08:58)
[2020-11-07] MEDS: Gabapentin 300 MG CAPSULE GTUBE SCH ×3 (08:59→22:34)
[2020-11-07] MEDS: *HR* Metformin 500 MG TABLET GTUBE SCH ×2 (08:59→17:12)
[2020-11-07] MEDS: *HR* Enoxaparin 40 MG/0.4 ML SYRINGE SQ SCH (09:00)
[2020-11-07] MEDS: Insulin DETEMIR 100 UNIT/ML X5UNITS SUBQ SCH ×3 (09:01→22:35)
[2020-11-07] MEDS: MetroNIDAZOLE 500 MG/100 ML 500 MG/100 ML BAG IVPB SCH ×2 (09:04→11:12)
[2020-11-07] MEDS: Nitrofurantoin (BID) 100 MG CAPSULE PO SCH ×2 (11:22→17:12)
[2020-11-07] MEDS: *HR* LORazepam 1 MG TABLET GTUBE PRN (22:34)
[2020-11-07] MEDS: Melatonin 3 MG TABLET PO PRN (22:34)
[2020-11-08] MEDS: *HR* Enoxaparin 40 MG/0.4 ML SYRINGE SQ SCH (06:30)
[2020-11-08] MEDS: Nitrofurantoin (BID) 100 MG CAPSULE PO SCH ×2 (08:25→17:00)
[2020-11-08] MEDS: Aspirin 81 MG TAB.CHEW GTUBE SCH (08:26)
[2020-11-08] MEDS: *HR* Metformin 500 MG TABLET GTUBE SCH ×2 (08:27→17:00)
[2020-11-08] MEDS: Gabapentin 300 MG CAPSULE GTUBE SCH ×3 (08:28→20:20)
[2020-11-08] MEDS: Insulin LISPRO 300 UNITS/3 ML VIAL SUBQ SCH ×4 (08:28→21:32)
[2020-11-08] MEDS: Insulin DETEMIR 100 UNIT/ML X5UNITS SUBQ SCH ×2 (08:32→20:22)
[2020-11-08] MEDS: *HR* LORazepam 1 MG TABLET GTUBE PRN ×2 (10:05→20:20)
[2020-11-08] MEDS ORDERED: Trolamine Salicylate/Aloe Vera 85 APPL/85 GM TUBE TP PRN (11:54)
[2020-11-08] MEDS: Melatonin 3 MG TABLET PO PRN (20:38)
[2020-11-09] MEDS: *HR* Enoxaparin 40 MG/0.4 ML SYRINGE SQ SCH (05:29)
[2020-11-09] MEDS: Insulin LISPRO 300 UNITS/3 ML VIAL SUBQ SCH ×4 (08:25→21:53)
[2020-11-09] MEDS: *HR* LORazepam 1 MG TABLET GTUBE PRN ×2 (08:38→17:29)
[2020-11-09] MEDS: Aspirin 81 MG TAB.CHEW GTUBE SCH (08:38)
[2020-11-09] MEDS: Gabapentin 300 MG CAPSULE GTUBE SCH ×3 (08:39→20:28)
[2020-11-09] MEDS: Nitrofurantoin (BID) 100 MG CAPSULE PO SCH ×2 (08:40→17:13)
[2020-11-09] MEDS: *HR* Metformin 500 MG TABLET GTUBE SCH ×2 (08:40→17:13)
[2020-11-09] MEDS: Insulin DETEMIR 100 UNIT/ML X5UNITS SUBQ SCH ×2 (08:41→20:28)
[2020-11-09] MEDS ORDERED: ASPERCREME 10% TP PRN (09:30)
[2020-11-09] MEDS: Melatonin 3 MG TABLET PO PRN (20:28)
[2020-11-10] MEDS: *HR* Enoxaparin 40 MG/0.4 ML SYRINGE SQ SCH (05:03)
[2020-11-10] MEDS: Gabapentin 300 MG CAPSULE GTUBE SCH ×3 (08:32→20:39)
[2020-11-10] MEDS: Nitrofurantoin (BID) 100 MG CAPSULE PO SCH ×2 (08:33→16:01)
[2020-11-10] MEDS: Aspirin 81 MG TAB.CHEW GTUBE SCH (08:33)
[2020-11-10] MEDS: Insulin LISPRO 300 UNITS/3 ML VIAL SUBQ SCH ×4 (08:33→22:09)
[2020-11-10] MEDS: Insulin DETEMIR 100 UNIT/ML X5UNITS SUBQ SCH ×2 (08:33→20:56)
[2020-11-10] MEDS: *HR* Metformin 500 MG TABLET GTUBE SCH ×2 (08:33→16:01)
[2020-11-10] MEDS: Ondansetron ODT 4 MG TAB.RAPDIS SL PRN (12:09)
[2020-11-10] MEDS: *HR* LORazepam 1 MG TABLET GTUBE PRN (16:01)
[2020-11-10] MEDS: Melatonin 3 MG TABLET PO PRN (20:40)
[2020-11-11] MEDS: *HR* Enoxaparin 40 MG/0.4 ML SYRINGE SQ SCH (06:07)
[2020-11-11] MEDS: Insulin LISPRO 300 UNITS/3 ML VIAL SUBQ SCH ×4 (08:19→20:30)
[2020-11-11] MEDS: Aspirin 81 MG TAB.CHEW GTUBE SCH (08:20)
[2020-11-11] MEDS: *HR* Metformin 500 MG TABLET GTUBE SCH ×2 (08:20→17:29)
[2020-11-11] MEDS: *HR* LORazepam 1 MG TABLET GTUBE PRN ×2 (08:21→17:32)
[2020-11-11] MEDS: Gabapentin 300 MG CAPSULE GTUBE SCH ×3 (08:21→20:17)
[2020-11-11] MEDS: Nitrofurantoin (BID) 100 MG CAPSULE PO SCH ×2 (08:21→17:29)
[2020-11-11] MEDS: Insulin DETEMIR 100 UNIT/ML X5UNITS SUBQ SCH ×2 (08:48→20:17)
[2020-11-11] MEDS: Ondansetron ODT 4 MG TAB.RAPDIS SL PRN (18:17)
[2020-11-11] MEDS: Melatonin 3 MG TABLET PO PRN (20:16)
[2020-11-12] MEDS: *HR* Enoxaparin 40 MG/0.4 ML SYRINGE SQ SCH (05:03)
[2020-11-12] MEDS ORDERED: Furosemide 40 MG/4 ML VIAL IVP ONE (06:23)
[2020-11-12] MEDS ORDERED: 0.9 % Sodium Chloride 500 ML IV ONE (06:27)
[2020-11-12] MEDS ORDERED: 0.9 % Sodium Chloride 1,000 ML ONE (06:28)
[2020-11-12 07:50] VITALS: BP 71/48
== END 2020-11-12 12:30 | disposition expired | DRG 56 ==
LOC: INPPIK 10-14 13:40
PROVIDERS: ADMIT Family Medicine; ATTEND Family Medicine